=== PATIENT | female | born 1995 | race American Indian/Alaskan Native ===

== ENCOUNTER 2021-09-19 05:50 | Inpatient (IN) | payer MEDICAID ==
[2021-09-19] MEDS ORDERED: BICITRA ORAL LIQD 30ML PO NR (06:21)
[2021-09-19] MEDS ORDERED: FAMOTIDINE 20 MG/2 ML INJ IV NR (06:21)
[2021-09-19] MEDS ORDERED: METOCLOPRAMIDE 10 MG/2 ML INJ IV NR (06:21)
[2021-09-19] MEDS ORDERED: LACTATED RINGERS 1,000 ML IV SCH (06:30)
--- NOTE | 2021-09-19 06:30 | History and Physical Report ---
History of Present Illness Date of examination: 09/19/21 Date of admission: 09/19/21 05:50 Chief complaint: IUP at 39 wga here for repeat C/Section #3 Past History Past Surgical History: section Family/Genetic History: none Social history: no significant social history Medications and Allergies Active Meds: Active Medications Citric Acid/Sodium Citrate (Bicitra Oral Liqd 30ml) 30 ml PO ONCE ONE Stop: 09/19/21 06:22 Famotidine (Famotidine 20 Mg/2 Ml Inj) 20 mg IV ONCE ONE Stop: 09/19/21 06:22 Lactated Ringer's (Lactated Ringers) 1,000 mls @ 2,250 mls/hr IV PREOP MANAV Stop: 09/20/21 06:57 Oxytocin/Sodium Chloride (Pitocin/Ns 30 Unit/500ml) 30 units in 500 mls @ 0 mls/hr IV TITR MANAV; Protocol Cefazolin Sodium (Ancef/Sterile Water 2 Gm/20 Ml) 2 gm in 20 mls @ 80 mls/hr IV PREOP NR; Protocol Metoclopramide HCl (Metoclopramide 10 Mg/2 Ml Inj) 10 mg IV ONCE ONE Stop: 09/19/21 06:22 Review of Systems All systems: negative Eyes: deferred Ears, nose, mouth and throat: deferred Genitourinary: normal appearance Rectal Exam: deferred, normal exam-external/orifice Integumentary: deferred - Physical Exam Breasts: Cardiovascular: Regular rate, Normal S1, Normal S2 Abdomen: Positive: normal appearance, soft, normal bowel sounds. Negative: distention, tenderness Vulva: both: normal Vagina: Positive: normal moisture. Negative: discharge Cervix: Negative: lesion, discharge Uterus: Positive: normal size, normal contour Adnexa: both: normal Anus/Rectum: Positive: normal perianal skin, heme negative. Negative: rectal mass, hemorrhoids Extremities: Deep Tendon Reflex Grade: Normal +2 - Obstetrical Uterine Contraction Monitor Mode: External Results All other labs normal.
[2021-09-19] MEDS ORDERED: ceFAZolin/Water 2 GM/20 ML 2 GM/20 ML SYRINGE IV NR (07:00)
[2021-09-19] MEDS ORDERED: OXYTOCIN DRIP 30 UNITS/500 ML BAG IV SCH (07:00)
[2021-09-19 07:05] LABS: Basophils % (Auto) 0.6 % (0.0-1.8); Eosinophils # (Auto) 0.1 K/mm3 (0.0-0.4); Eosinophils % (Auto) 1.4 % (0.0-4.3); Hematocrit 33.6 % (30.3-42.9); Hemoglobin 11.5 gm/dl (10.1-14.3); Lymphocytes # (Auto) 2.9 K/mm3 (1.2-5.4); Lymphocytes % (Auto) 32.7 % (13.4-35.0); Mean Corpuscular HGB Conc 34 % (30-34); Mean Corpuscular Volume 78 fl (79-97); Monocytes # (Auto) 0.8 K/mm3 (0.0-0.8); Platelet Count 174 K/mm3 (140-440); Red Cell Distribution Width 14.9 % (13.2-15.2)
--- NOTE | 2021-09-19 07:27 | Anesthesia Consultation ---
Anesthesia Consult and Med Hx Date of service: 09/19/21 - Airway Anesthetic Teeth Evaluation: Good ROM Head & Neck: Adequate Mental/Hyoid Distance: Adequate Mallampati Class: Class II Intubation Access Assessment: Probably Good - Pulmonary Exam CTA: Yes - Cardiac Exam Cardiac Exam: RRR - Pre-Operative Health Status ASA Pre-Surgery Classification: ASA2 Proposed Anesthetic Plan: Spinal Nerve Block: TAP block - Pulmonary Hx Smoking: No Hx Asthma: No - Cardiovascular System Hx Hypertension: No - Central Nervous System Hx Seizures: No CVA: No Hx Psychiatric Problems: No - Endocrine Hx Renal Disease: No Hx Liver Disease: No Hx Non-Insulin Dependent Diabetes: No Hx Hypothyroidism: No Hx Hyperthyroidism: No - Hematic Hx Anemia: No Hx Sickle Cell Disease: No - Other Systems Hx Alcohol Use: No Hx Substance Use: No Hx Cancer: No Hx Obesity: Yes (BMI 45) - Additional Comments Anesthesia Medical History Comments: no hx of anesthetic complcations
--- NOTE | 2021-09-19 07:28 | Anesthesia Day of Surgery ---
Anesthesia Day of Surgery - Day of Surgery Patient Examined: Yes Patient H&P Reviewed: Yes Patient is NPO: Yes
[2021-09-20] MEDS ORDERED: METOCLOPRAMIDE 10 MG/2 ML INJ IV NR (14:35)
[2021-09-20] MEDS ORDERED: FAMOTIDINE 20 MG/2 ML INJ IV NR (14:35)
[2021-09-20] MEDS ORDERED: BICITRA ORAL LIQD 30ML PO NR (14:35)
[2021-09-20] MEDS ORDERED: ONDANSETRON 4 MG/2 ML INJ ONE (14:58)
[2021-09-20] MEDS ORDERED: ePHEDrine SULFATE 50 MG/1 ML INJ ONE (14:58)
[2021-09-20] MEDS ORDERED: ceFAZolin/Water 2 GM/20 ML 2 GM/20 ML SYRINGE IV NR (15:00)
[2021-09-20] MEDS ORDERED: LACTATED RINGERS 1,000 ML IV SCH (15:00)
[2021-09-20] MEDS ORDERED: OXYTOCIN DRIP 30 UNITS/500 ML BAG IV SCH ×2 (15:00→22:00)
[2021-09-20] MEDS ORDERED: PROMETHAZINE 25 MG TAB PO PRN ×2 (15:17→22:11)
[2021-09-20] MEDS ORDERED: NALOXONE 0.4 MG/1 ML INJ IV PRN ×3 (15:17→22:11)
[2021-09-20] MEDS ORDERED: PROMETHAZINE 25 MG RECT SUPP PR PRN ×2 (15:17→22:11)
[2021-09-20] MEDS ORDERED: ONDANSETRON 4 MG/2 ML INJ IV PRN ×2 (15:17→22:11)
[2021-09-20] MEDS ORDERED: HYDROmorphone 1 MG/1 ML INJ IV PRN ×4 (15:17→22:11)
[2021-09-20] MEDS ORDERED: BUPIVACAINE/PF (0.25%) 2.5 MG/ML 30 ML VIAL INFILTRATI ONE (19:16)
[2021-09-20] MEDS ORDERED: WATER FOR IRRIG STERILE 1,500 ML BOTTLE IR ONE (20:05)
[2021-09-20] MEDS ORDERED: SODIUM CHLORIDE 0.9% IRR 1,500 ML BOTTLE IR ONE (20:05)
[2021-09-20] MEDS ORDERED: OXYTOCIN 10 UNIT/1 ML INJ ONE (20:56)
[2021-09-20] MEDS ORDERED: fentaNYL 100 MCG/2 ML INJ ONE (21:13)
[2021-09-20] MEDS ORDERED: SIMETHICONE 80 MG CHEW TAB PO PRN (21:41)
[2021-09-20] MEDS ORDERED: LANOLIN/ZINC/DIMETHICONE (LANSINOH) 7 GM TP PRN (21:41)
[2021-09-20] MEDS ORDERED: ACETAMINOPHEN 325 MG TAB PO PRN (21:41)
[2021-09-20] MEDS ORDERED: WITCH HAZEL/ GLYCERIN PAD TP PRN (21:41)
--- NOTE | 2021-09-20 21:52 | Procedure Note ---
OB Delivery Note - Delivery Date of Delivery: 09/20/21 Surgeon: FRANCE MORENO Housing Coordinator: MONTANA MUHAMMAD Estimated blood loss: other (760 mL) - Section Preop diagnosis: repeat Postop diagnosis: same section procedure: repeat low transverse Disposition: PACU Narrative: PREOPERATIVE DIAGNOSES: 1. Intrauterine at 39 weeks. 2. History of previous delivery x1. The patient desires a repeat delivery. POSTOPERATIVE DIAGNOSES: 1. Intrauterine at 39 weeks. 2. History of previous delivery x1. The patient desires a repeat delivery. PROCEDURE PERFORMED: Repeat delivery. ANESTHESIA: Spinal. QUANTITATIVE BLOOD LOSS: 760 mL. COMPLICATIONS: None. FINDINGS: Liveborn female . Apgars 8 at 1 minute, 9 at 5 minutes. 3590 g. INDICATIONS: The patient is a 26-year-old 4, para 1 female, who presented to repeat section at term. The patient has a history of 1 previous section and she desires a repeat section. The procedure was described to the patient in detail including possible risks of bleeding, infection, injury to surrounding organs, and the possible need for further surgery and informed consent was obtained. PROCEDURE NOTE: The patient was taken to the operating room where spinal anesthesia was administered without difficulty. The patient was prepped and draped in the usual sterile fashion in the dorsal supine position with a leftward tilt. A Pfannenstiel skin incision was made with the scalpel through the previous Pfannenstiel skin scar and carried through to the underlying layer of fascia using the Bovie. The fascia was incised in the midline and extended laterally using Muñoz scissors. Leonardo clamps were used to elevate the superior aspect of the fascial incision, which was elevated, and the underlying rectus muscles were dissected off bluntly and using Muñoz scissors. Attention was then turned to the inferior aspect of the fascial incision, which in similar fashion was grasped with Leonardo clamps, elevated, and the underlying rectus muscles were dissected off bluntly and using the Bovie. The rectus muscles were dissected in the midline. The peritoneum was identified and entered using Metzenbaum scissors; this incision was extended superiorly and inferiorly with good visualization of the bladder. The Bubba self-retaining retractor was inserted. The vesicouterine peritoneum was identified and entered sharply using Metzenbaum scissors. This incision was extended bilaterally and the bladder flap was created digitally. The lower uterine segment was incised in a transverse fashion using the scalpel and extended bluntly as well as manual traction. Clear fluid was noted. The infant was subsequently delivered. The nose and mouth were bulb suctioned. The cord was clamped and cut. The was subsequently handed to the awaiting nursery nurse. The placenta was delivered spontaneously intact with a three-vessel cord noted. The uterus was left in situ and cleared of all clots and debris. The uterine incision was repaired in 2 layers using 0 Vicryl. Hemostasis was visualized. The uterine incision was reexamined and it was noted to be hemostatic. The pelvis was copiously irrigated. The parietal peritoneum and rectus muscles were reapproximated in the midline using 2-0 Vicryl. The fascia was closed with 0 Vicryl suture, the subcutaneous layer was closed with 2-0 Vicryl, and the skin was closed with 3-0 Monocryl in a running subcuticular fashion. Sponge, lap, and instrument counts were correct x2. The patient was stable at the completion of the procedure and was subsequently transferred to the recovery room in stable condition. - A at 1 minute: 8 at 5 minutes: 9 Infant Gender: Female (3590 g)
[2021-09-20] MEDS ORDERED: LACTATED RINGERS 1,000 ML ONE (22:44)
[2021-09-21 08:23] LABS: Basophils % (Auto) 0.3 % (0.0-1.8); Eosinophils % (Auto) 0.5 % (0.0-4.3); Hematocrit 31.4 % (30.3-42.9); Hemoglobin 10.2 gm/dl (10.1-14.3); Lymphocytes # (Auto) 2.6 K/mm3 (1.2-5.4); Mean Corpuscular HGB Conc 32 % (30-34); Mean Corpuscular Volume 80 fl (79-97); Monocytes % (Auto) 10.5 % (0.0-7.3); Platelet Count 139 K/mm3 (140-440); Red Cell Distribution Width 15.3 % (13.2-15.2)
[2021-09-21] MEDS: HYDROcodone/ACETAMINOPHEN 5-325 MG TAB PO PRN ×3 (10:35→23:23)
--- NOTE | 2021-09-21 11:04 | Post Anesthesia Evaluation ---
- Post Anesthesia Evaluation Patient Participated: Yes Airway Patent: Yes Stable Respiratory Function: Yes Nausea/Vomiting: Yes Temp > 96.8F: No Pain Manageable: Yes Adequeate Hydration: Yes Anesthesia Complications: No Block Receding Appropriately: Yes Patient on Ventilator: No
--- NOTE | 2021-09-21 14:50 | Progress Note ---
Assessment and Plan A: POD Day #1 Asymptomatic Anemia Maternal Morbid Obesity P: Follow Routine PostOp Orders Continue PO FESO4 as ordered Subjective - Subjective Date of service: 09/21/21 Patient reports: appetite normal, voiding normally, pain well controlled, flatus, ambulating normally [place]: doing well, bottle feeding Objective - Vital Signs Latest vital signs: Vital Signs Temp Pulse Resp BP BP Pulse Ox Pulse Ox 09/21/21 12:32 98.0 F 57 L 16 116/62 98 09/21/21 08:13 98.1 F 61 20 103/62 100 09/21/21 07:40 98 09/21/21 04:30 98.8 F 78 18 114/78 09/21/21 04:23 16 09/21/21 00:32 100 09/21/21 00:25 98.0 F 62 18 120/56 100 09/20/21 23:55 98.9 F 64 18 136/60 100 09/20/21 23:24 90 95 09/20/21 23:19 95 H 98 09/20/21 23:14 95 H 99 09/20/21 23:10 59 L 21 135/57 99 09/20/21 23:09 106 H 98 09/20/21 23:04 96 H 98 09/20/21 22:59 100 H 96 09/20/21 22:55 60 18 137/76 99 09/20/21 22:54 103 H 99 09/20/21 22:49 107 H 99 09/20/21 22:44 111 H 98 09/20/21 22:40 63 17 146/79 99 09/20/21 22:39 102 H 97 09/20/21 22:34 101 H 96 09/20/21 22:29 113 H 96 09/20/21 22:27 104 H 106/70 09/20/21 22:26 63 13 132/68 100 09/20/21 22:24 97 H 97 09/20/21 22:20 56 L 19 143/72 99 09/20/21 22:19 101 H 96 09/20/21 22:15 67 15 146/73 97 09/20/21 22:14 89 97 09/20/21 22:10 97.5 F L 55 L 22 137/74 100 09/20/21 22:09 96 H 97 09/20/21 22:04 98 H 97 09/20/21 19:30 32 L 91 09/20/21 19:29 96 H 94 09/20/21 19:24 85 94 09/20/21 19:22 78 94 09/20/21 19:19 74 96 09/20/21 19:16 87 94 09/20/21 19:13 97 H 99 09/20/21 19:08 93 H 99 09/20/21 19:03 73 100 09/20/21 18:58 84 98 09/20/21 18:53 90 88 09/20/21 18:48 79 98 09/20/21 18:45 93 H 94 09/20/21 18:43 76 97 09/20/21 18:38 75 97 09/20/21 18:33 83 98 09/20/21 18:30 94 H 93 09/20/21 18:28 91 H 97 09/20/21 18:23 79 97 09/20/21 18:19 93 09/20/21 18:18 80 97 09/20/21 18:13 78 99 09/20/21 18:08 96 H 96 09/20/21 18:03 84 98 09/20/21 17:58 90 97 09/20/21 17:53 90 98 09/20/21 17:48 97 H 97 09/20/21 17:43 85 98 09/20/21 17:38 82 96 09/20/21 17:33 76 97 09/20/21 17:28 89 97 09/20/21 17:23 101 H 97 09/20/21 17:18 95 H 97 09/20/21 17:13 96 H 97 09/20/21 17:08 87 97 09/20/21 17:03 77 96 09/20/21 16:58 87 86 09/20/21 16:53 91 H 97 09/20/21 16:48 96 H 98 09/20/21 16:43 104 H 97 09/20/21 16:38 104 H 96 09/20/21 16:33 106 H 97 09/20/21 16:28 91 H 96 09/20/21 16:23 105 H 97 09/20/21 16:18 88 96 09/20/21 16:13 105 H 97 09/20/21 16:08 102 H 98 09/20/21 16:03 102 H 97 09/20/21 15:58 96 H 97 09/20/21 15:53 87 98 09/20/21 15:48 86 97 09/20/21 15:43 88 98 09/20/21 15:38 83 96 09/20/21 15:36 98.6 F 18 09/20/21 15:33 74 97 09/20/21 15:28 90 97 09/20/21 15:23 78 122/65 97 09/20/21 15:03 81 119/65 Intake and Output 09/20/21 09/21/21 09/21/21 22:59 06:59 14:59 Intake Total 2050 200 240 Output Total 200 300 500 Balance 1850 -100 -260 Intake: IV 0 Oral 200 240 Output: Urine 200 300 500 Indwelling Catheter 100 Uretheral (Zambrano) 100 500 Other: Total, Intake Amount 200 240 Total, Output Amount 100 Estimated Blood Loss 760 - Exam Breasts: Present: normal Cardiovascular: Present: Regular rate Lungs: Present: Clear to auscultation, Normal air movement Abdomen: Present: normal appearance, soft, normal bowel sounds Uterus: Present: normal, firm, fundal height below umbilicus Extremities: Present: normal Incision: Present: dry, dressed - Labs Labs: Abnormal lab results 09/21/21 Range/Units 08:03 MCH 26 L (28-32) pg RDW 15.3 H (13.2-15.2) % Plt Count 139 L (140-440) K/mm3 [place] % (Auto) 10.5 H (0.0-7.3) % [place] # (Auto) 1.0 H (0.0-0.8) K/mm3
[2021-09-21] MEDS: IBUPROFEN 600 MG TAB PO PRN (18:08)
[2021-09-22] MEDS: IBUPROFEN 600 MG TAB PO PRN ×2 (04:19→13:10)
[2021-09-22] MEDS ORDERED: FERROUS SULFATE 325 MG TAB PO SCH (10:00)
[2021-09-22 10:02] LABS: Basophils % (Auto) 0.3 % (0.0-1.8); Eosinophils # (Auto) 0.2 K/mm3 (0.0-0.4); Eosinophils % (Auto) 1.8 % (0.0-4.3); Hematocrit 32.4 % (30.3-42.9); Hemoglobin 10.4 gm/dl (10.1-14.3); Lymphocytes % (Auto) 22.3 % (13.4-35.0); Mean Corpuscular HGB Conc 32 % (30-34); Mean Corpuscular Volume 80 fl (79-97); Monocytes # (Auto) 0.9 K/mm3 (0.0-0.8); Monocytes % (Auto) 9.8 % (0.0-7.3); Platelet Count 164 K/mm3 (140-440); Red Blood Count 4.04 M/mm3 (3.65-5.03); Red Cell Distribution Width 15.4 % (13.2-15.2)
[2021-09-22] MEDS: HYDROcodone/ACETAMINOPHEN 5-325 MG TAB PO PRN (10:22)
--- NOTE | 2021-09-22 13:18 | Progress Note ---
Assessment and Plan POD#2 with asymptomatic anemia 1. Routine care and discharge pt home to follow up with her clinic in 1wk All questions encouraged and answered Subjective Date of service: 09/22/21 Principal diagnosis: POD#2 C/S Interval history: pt has no complaints and wants to go home. pain controlled with meds. pt voiding without difficulty. Vag bleed less than a period. pt is bottle feeding now and plans to breast feed at home Objective - Constitutional Vitals: Vital Signs - 12hr 09/22/21 09/22/21 09/22/21 04:19 07:56 08:33 Temperature 97.8 F Pulse Rate 65 Respiratory 20 20 Rate Blood Pressure 112/53 O2 Sat by Pulse 98 Oximetry O2 Sat by Pulse 98 Oximetry [ Anterior Bilateral Throughout] General appearance: Present: no acute distress - Neck Neck: normal ROM - Respiratory Respiratory effort: normal - Breasts Breasts: deferred - Cardiovascular Rhythm: regular Extremities: No edema - Gastrointestinal General gastrointestinal: Present: soft (obese), non-tender - Genitourinary Female genitourinary: other (Dressing removed and edges well approximated, no drainage or erythema or tenderness; lochia small; Fundus 2cm below umbilicus and non-tender) - Neurologic Neurologic: moves all extremities - Psychiatric Psychiatric: cooperative - Labs CBC & Chem 7: 09/22/21 09:30 Labs: Abnormal lab results 09/22/21 Range/Units 09:30 MCH 26 L (28-32) pg RDW 15.4 H (13.2-15.2) % [place] % (Auto) 9.8 H (0.0-7.3) % [place] # (Auto) 0.9 H (0.0-0.8) K/mm3 Medications & Allergies - Medications Allergies/Adverse Reactions: Allergies No Known Allergies Allergy (Verified 09/19/21 06:48) Home Medications: Home Medications Medication Instructions Recorded Confirmed Last Taken Type Ibuprofen [Motrin 800 MG tab] 800 mg PO Q8HR PRN 21 Days #40 09/20/21 Unknown Rx tablet oxyCODONE /ACETAMINOPHEN [Percocet 1 tab PO Q4HR PRN 21 Days #30 tab 09/20/21 Unknown Rx 5/325] Active Medications: Generic Name Dose Route Start Last Admin Trade Name Freq PRN Reason Stop Dose Admin Acetaminophen 650 mg 08/10/22 21:41 Acetaminophen 325 Mg Tab PO Q4H PRN Fever >100.5/BLACKMON Hydrocodone Bitart/Acetaminophen 1 each 09/20/21 21:41 09/22/21 10:22 Hydrocodone/Acetaminophen 5-325 Mg Tab PO 1 each Q6H PRN Administration Pain, Moderate (4-6) Ferrous Sulfate 325 mg 09/22/21 10:00 09/22/21 10:22 Ferrous Sulfate 325 Mg Tab PO 325 mg QDAY MANAV Administration Hydromorphone HCl 0.5 mg 09/20/21 22:11 09/20/21 22:40 Hydromorphone 1 Mg/1 Ml Inj IV 0.5 mg Q5M PRN Administration BREAK Hydromorphone HCl 0.5 mg 09/20/21 22:11 09/21/21 04:23 Hydromorphone 1 Mg/1 Ml Inj IV 0.5 mg Q4H PRN Administration breakthrough pain > 7/10 Oxytocin/Sodium Chloride 30 units in 500 mls @ 40 mls/hr 09/20/21 22:00 Pitocin/Ns 30 Unit/500ml IV TITR MANAV Protocol Ibuprofen 800 mg 09/20/21 21:41 09/22/21 13:10 Ibuprofen 600 Mg Tab PO 800 mg Q8H PRN Administration Pain, Mild (1-3) Multi-Ingredient Ointment 1 applic 09/20/21 21:41 Lanolin/Zinc/Dimethicone (Lansinoh) 7 Gm TP PRN PRN dryness/cracking Naloxone HCl 0.1 mg 09/20/21 21:41 Naloxone 0.4 Mg/1 Ml Inj IV Q2MIN PRN Res Rate </= 8 or 02 SAT < 92% Naloxone HCl 0.2 mg 09/20/21 22:11 Naloxone 0.4 Mg/1 Ml Inj IV Q2MIN PRN Res Rate </= 8 or 02 SAT < 92% Ondansetron HCl 4 mg 09/20/21 22:11 Ondansetron 4 Mg/2 Ml Inj IV Q8H PRN Nausea And Vomiting Promethazine HCl 25 mg 09/20/21 22:11 Promethazine 25 Mg Tab PO Q6H PRN Nausea And Vomiting Promethazine HCl 25 mg 09/20/21 22:11 Promethazine 25 Mg Rect Supp DC Q6H PRN Nausea And Vomiting Simethicone 80 mg 09/20/21 21:41 Simethicone 80 Mg Chew Tab PO Q6H PRN Gas pain Sodium Chloride 10 ml 09/20/21 22:00 Sodium Chloride 0.9% 10 Ml Flush Syringe IV 09/27/21 21:59 PRN NR Witch Aminta/Glycerin 1 each 09/20/21 21:41 Witch Aminta/ Glycerin Pad TP PRN PRN Hemorrhoids/cleansing/soothing
--- NOTE | 2021-09-22 13:19 | Discharge Summary ---
Providers - Providers Date of Admission: 09/20/21 14:09 Date of discharge: 09/22/21 Attending physician: QUINTIN TORRES Primary care physician: QUINTIN TORRES Hospitalization Reason for admission: IUP at term Delivery: Procedure: repeat low transverse Incision: normal, dry, intact complications: none Discharge diagnosis: IUP at term delivered [place] baby: female Hospital course: term preg scheduled repeat c/section done by Dr. Moreno and same uncomplicated. course uneventful with asymptomatic anemia.. Condition at discharge: Good Disposition: 01 HOME / SELF CARE / HOMELESS - Discharge Diagnoses (1) S/P repeat low transverse Status: Acute (2) Morbid obesity Status: Acute Plan - Discharge Medications Prescriptions: Ibuprofen [Motrin 800 MG tab] 800 mg PO Q8HR PRN 21 Days #40 tablet PRN Reason: Pain, Moderate (4-6) oxyCODONE /ACETAMINOPHEN [Percocet 5/325] 1 tab PO Q4HR PRN 21 Days #30 tab PRN Reason: Pain , Severe (7-10) - Provider Discharge Summary Activity: no sex for 6 weeks Diet: routine Instructions: other (keep wound dry with hand towel change 2-3times per day, make appt with Dr. Moreno in 5-7days for wound check. call them if fever>100.4, severe heavy bleeding or severe pelvic pain.) Additional instructions: [] Smoking cessation referral if applicable(refer to patient education folder for contact #) [] Refer to [facility]'s [facility] Booklet Call your doctor immediately for: * Fever > 100.5 * Heavy vaginal bleeding ( >1 pad per hour) * Severe persistent headache * Shortness of breath * Reddened, hot, painful area to leg or breast * Drainage or odor from incision. * Keep incision clean and dry at all times and follow doctor's instructions regarding bathing/showering - Follow up plan Follow up: QUINTIN TORRES MD [Primary Care Provider] - 7 Days FRANCE MORENO MD [Staff Physician] - 7 Days Forms: [facility] Discharge Summary
[2021-09-22 14:51] VITALS: BP 109/51
== END 2021-09-22 16:30 | disposition home or self-care (01) | DRG 766 ==
LOC: APU 05:50 → UNDOADMIN 05:50 → APU 09-20 14:09 → OB 09-21
PROVIDERS: ADMIT Obstetrics & Gynecology; ATTEND Obstetrics & Gynecology
PROC: 10D00Z1 Extraction of Products of Conception, Low, Open Approach (ICD-10-PCS; principal; 2021-09-20)
DX: O34.211 Maternal care for low transverse scar from previous cesarean delivery (principal); Z3A.39 39 weeks gestation of pregnancy; Z37.0 Single live birth; Z20.822 Contact with and (suspected) exposure to COVID-19; O99.214 Obesity complicating childbirth; E66.01 Morbid (severe) obesity due to excess calories; O90.81 Anemia of the puerperium
CPT/HCPCS: 36415; 85025; 86850; 86900; 86901; G0378; J3490; J1170; J2405; J2590; J2765; J3010; J7120; U0003